=== PATIENT | female | born 1985 | race Caucasian/White ===

== ENCOUNTER 2016-11-13 08:00 | Outpatient (CLI) | payer MEDICAID, OTHER | END 2016-11-13 23:59 | disposition home or self-care (01) | LOC: LAB.R 08:00 | PROVIDERS: ATTEND Nurse Practitioner Family | DX: J34.89 Other specified disorders of nose and nasal sinuses (principal) | CPT/HCPCS: 80053; 84443; 85025; 87640 ==

== ENCOUNTER 2017-06-30 14:47 | Outpatient (CLI) | payer MEDICAID, OTHER ==
[2017-06-30 17:35] LABS: BILIRUBIN,URINE NEGATIVE (NEGATIVE); GLUCOSE, URINE (UA) NEGATIVE (NEGATIVE); KETONES,URINE (UA) NEGATIVE (NEGATIVE); LEUKOCYTE ESTERASE, URINE NEGATIVE (NEGATIVE); NITRITE,URINE NEGATIVE (NEGATIVE); OCCULT BLOOD,URINE NEGATIVE (NEGATIVE); PROTEIN,URINE NEGATIVE (NEGATIVE); UROBILINOGEN,URINE 0.2 (NORMAL) E.U./dL (NORMAL)
[2017-06-30 17:59] LABS: BACTERIA,URINE None Seen /HPF (None Seen); CLARITY,URINE CLEAR (CLEAR); RBC,URINE None Seen /HPF (0-5); SQUAMOUS EPITHELIAL CELL,UR RARE Squamous (<= Few)
[2017-06-30 17:59] LABS: CREATININE 0.6 mg/dL (0.4-1.0)
[2017-06-30 18:04] LABS: CREATININE,URINE 27.8 mg/dL
[2017-06-30 19:19] LABS: MICROALBUMIN,URINE < 0.2 mg/dL (0-300.0)
== END 2017-06-30 14:48 | disposition home or self-care (01) ==
LOC: LAB.F 14:47
PROVIDERS: ATTEND Nurse Practitioner Family
DX: Q51.4 Unicornate uterus (principal)
CPT/HCPCS: 36415; 80048; 81001; 82043; 82570; 87086

== ENCOUNTER 2018-03-19 09:01 | Outpatient (CLI) | payer OTHER ==
[2018-03-19 18:03] LABS: CHOL/HDL RATIO 2.8 (<4.4); CHOLESTEROL 219 mg/dL; HDL CHOLESTEROL 79 mg/dL; LDL CHOLESTEROL,CALCULATED 129 mg/dL; LDL/HDL RATIO 1.6 (<4.4); VLDL CHOLESTEROL 11 mg/dL
[2018-03-22 17:52] LABS: ANA SCREEN POSITIVE (NEGATIVE)
== END 2018-03-19 09:02 | disposition home or self-care (01) ==
LOC: LAB.F 09:01
PROVIDERS: ATTEND Nurse Practitioner
DX: R68.0 Hypothermia, not associated with low environmental temperature (principal); Z83.49 Family history of other endocrine, nutritional and metabolic diseases; L85.3 Xerosis cutis; M24.451 Recurrent dislocation, right hip; L98.8 Other specified disorders of the skin and subcutaneous tissue
CPT/HCPCS: 36415; 80061; 83721; 84443; 86038

== ENCOUNTER 2018-04-09 09:54 | Outpatient (CLI) | payer OTHER ==
--- NOTE | 2018-04-11 00:48 | XRAY Report ---
Reason: POSITIVE ANTINUCLEAR ANTIBODY,INSTABILITY OF RIGHT Procedure Date: 04/09/2018 Accession Number: [id number] / [id number] Procedure: XR - Hip w/Pelvis 2-3V RT CPT Code: FULL RESULT: EXAM: RIGHT HIP RADIOGRAPHY EXAM DATE: 04/09/2018 10:17 AM. CLINICAL HISTORY: POSITIVE ANTINUCLEAR ANTIBODY,INSTABILITY OF RIGHT. Right hip instability. Gradually worsening pain Carl and range of motion loss as day goes on. COMPARISON: None. TECHNIQUE: 2 views. FINDINGS: Bones: No evidence for acute fracture or bone lesion. Right femoral neck is more narrow than the left. Joints: Normal. No dislocation. The hip joint space is preserved. Soft Tissues: Normal. No soft tissue swelling. IMPRESSION: No acute findings. See above. [facility]
== END 2018-04-09 09:55 | disposition home or self-care (01) ==
LOC: DI 09:54
PROVIDERS: ATTEND Nurse Practitioner Family
DX: M25.351 Other instability, right hip (principal)

== ENCOUNTER 2020-10-13 08:00 | Outpatient (CLI) | payer BC, OTHER | END 2020-10-13 23:59 | disposition home or self-care (01) | LOC: LAB.S 08:00 | PROVIDERS: ATTEND Emergency Medicine | DX: R07.0 Pain in throat (principal); Z20.822 Contact with and (suspected) exposure to COVID-19 ==

== ENCOUNTER 2020-12-20 08:00 | Outpatient (CLI) | payer BC | END 2020-12-20 23:59 | disposition home or self-care (01) | LOC: LAB.S 08:00 | PROVIDERS: ATTEND Physician Assistant Medical | DX: R07.0 Pain in throat (principal); Z20.822 Contact with and (suspected) exposure to COVID-19 | CPT/HCPCS: 87070 ==